=== PATIENT | female | born 1985 | race Two or more races ===

== ENCOUNTER 2019-09-21 08:53 | Emergency (ER) | payer MEDICAID, OTHER ==
[~2019-09-21] VITALS: Ht 154.9 cm; Wt 60.8 kg
[2019-09-21 09:04] VITALS: BP 106/71
== END 2019-09-21 10:14 | disposition home or self-care (01) ==
LOC: ER 08:59
DX: M43.6 Torticollis (principal); M62.830 Muscle spasm of back

== ENCOUNTER 2025-03-08 19:09 | Emergency (ER) | payer MEDICAID ==
[~2025-03-08] VITALS: Ht 157.5 cm; Wt 63.8 kg
--- NOTE | 2025-03-08 19:58 | ED.PDOC ---
Musculoskeletal HPI Comments HPI: Poor Historian. 39-year-old female presents to emergency department for evaluation of left ankle pain status post mechanical twist and fall on an uneven pavement. This happened approximately 1300 our today. Denies any other injuries or trauma. Patient ambulating in the ED. Past Medical History: Denies any Past Surgical History: Denies any REVIEW OF SYSTEMS: CONSTITUTIONAL: Denies acute: fever, diaphoresis, chills, generalized weakness. HEAD: Denies acute: headache, photophobia Eyes: Denies acute: Double vision, vision loss, eye pain, eye discharge. EARS: Denies acute: tinnitus, hearing loss, ear discharge, ear pain, THROAT: Denies acute: sore throat, swelling, difficulty swallowing , pain with swallowing, change in voice. NECK: Denies acute: neck pain, neck swelling, stiff neck. HEART: Denies acute : chest pain, palpitations, LUNGS: Denies acute: SOB, wheezing, cough, hemoptysis ABDOMEN: Denies acute: abdominal pain, Nausea, Vomiting, diarrhea, melena , hematemesis, hematochezia SKIN: Denies acute: rash, redness, lesions, itchiness. EXTREMITIES: Denies acute: calf pain, numbness, tingling, weakness, Denies acute: Low back pain. Neuro: Denies acute: focal neurological deficit, motor or sensory focal neurological deficit, tremors, seizure like activity, confusion, dizziness, change in mental status, loss of bowel or bladder function, cauda equina like symptoms. : Denies acute: dysuria, hematuria, flank pain, increase in urinary frequency. PSYCH: Denies acute: hallucination, suicidal ideation, homicidal ideation. FEMALE: Denies acute: abnormal vaginal bleeding, foul odor, unusual discharge. PHYSICAL EXAM: General: ----mild----acute distress, awake and alert. Head: normocephalic, atraumatic. Neck: supple, trachea is midline, no swelling. Throat: Normal phonation. Eyes:, no erythema, no purulent discharge, no proptosis, no icterus. Heart: regular rate, regular rhythm, no significant murmur appreciated. Lungs: no apparent respiratory distress, Able to speak in full sentences. No wheezing, no rhonchi, no crackles. No stridors Clear to auscultation bilaterally. Abdomen: non tender to palpation, non distended, soft, no guarding, no rebound, + bowel sounds. Neuro: Awake, Alert, oriented to name, self, situation, follows commands GCS=15. Speech is normal. Skin: no petechia, no purpura, no cyanosis, non-pale, not jaundice. Lower extremities: --no - Pitting edema no deformity, no focal swelling, no calf TTP. Evaluation of the left ankle area of complaint: No apparent swelling or erythema or deformity. The patient has focal tenderness to palpation over the left anterior lateral malleoli area. Pedal pulses palpable. Patient is neurovascularly intact in the affected extremity. Motor and sensory are present. Makes eye contact. moves all four extremities. Face: no apparent facial droop. Ambulating in the ED independently. Pedal pulses are palpable. ED COURSE: Chief Complaint: Lower Extremity Time Seen by MD: 19:52 Primary Care Provider: NONE Reviewed Notes: Nurses Notes, Medications, Allergies Allergies: Coded Allergies: NO KNOWN ALLERGIES (Unverified , 09/21/19) Information Source: Patient Location: Left Past Medical History PAST MEDICAL HISTORY: Denies Surgical History: Denies all surgeries MANAGER ENGAGEMENT History: Denies all MANAGER ENGAGEMENT Hx Family History Family History: Reviewed,noncontributory to illness Social History Smoker: Non-Smoker Lives In: Home Was a procedure done? Was a procedure done?: No Differential Diagnosis EXT Differential Diagnosis: Deep Vein Thrombosis, Compartment Syndrome, Fracture, Sprain, Dislocation, Gout, DJD, Contusion, Strain, Septic, Hernia, Neurovascular injury, Arthritis, Bursitis X-Ray, Labs, Meds, VS Vital Signs Date Time Temp Pulse Resp B/P (MAP) Pulse Ox O2 Delivery O2 Flow Rate FiO2 03/08/25 22:54 98.0 83 16 118/73 (88) 98 98.0 03/08/25 19:40 99.0 83 12 118/73 (88) 98 99.0 [facility] [id number] [facility] [id number] Ph: [phone] DIAGNOSTIC IMAGING Diagnostic Imaging Report : [id number] Signed PATIENT: MARLO TUTTLET: [id number] UNIT: [id number] : 1985 LOC: ER ROOM / BED: / AGE / SEX: 39 / F ADM STATUS: REG ER SERVICE 51 ORDERING PHYSICIAN: AYDIN DENNIS DO PROCEDURE(s): LANKL - L ANKLE 3 VIEW REASON: injury ORDER NUMBER(s): [id number], ACCESSION NUMBER(s): [id number] CLINICAL INDICATION: injury TECHNIQUE: XY L ANKLE 3 VIEW Comparison: None FINDINGS: No osseous or joint abnormality identified with no evidence of joint effusion, fracture or dislocation. Ankle mortise is normal. IMPRESSION: No abnormality demonstrated. ATED BY: GENARO MAHAN MD DICTATED DATE/TIME: 03/08/252042 SIGNED BY: GENARO MAHAN MD SIGNED DATE/TIME: 03/08/252042 CC: Time of 1ST Reevaluation: 00:00 Reevaluation 1ST: Unchanged Patient Education/Counseling: Diagnosis, Treatment Family Education/Counseling: Other Comments Patient presented with the above HPI.---ankle injury---workup was initiated. patient was found with the above mentioned diagnosis. the following medications were ordered: please refer to order lists of meds and tests obtained by myself Dr. Dennis. Patient ED course and VS have been stabilized. Patient has been reassessed in the ED and remained in a stable condition. Pertinent incidental findings were discussed with the patient and/or family. Patient/family voices understanding and is agreeable with plan. Patient has been observed in the ED adequate length of time to insure improvement/stability. Escalation of care considered: Consideration of escalation to observation or admission Patient was DISCHARGED home in a stable condition. All the reports of any imaging studies that were ordered by myself were reviewed by myself. Departure 1 Departure Time of Disposition: 20:43 Impression: Primary Impression: Left ankle sprain Disposition: 01 HOME / SELF CARE / HOMELESS Condition: Stable Additional Instructions: Additional instructions: You MUST follow-up with your primary care/family doctor in 1 to 2 days. If you are unable to see your primary care/family doctor, please return to our emergency room for re-assessment and re-evaluation in 1 to 2 days. Return to the emergency room here in our facility or to the nearest ER [facility] if your symptoms change or worsen. CONSULTATIONS: you MUST Follow-up for consultation as soon as possible with: -orthopedic doctor in 1-2 days. Please call for appointment. You MUST call the consultants office yourself to make an appointment. You may need to arrange that through your insurance and/or your primary/family doctor. If you are unable to see the contamination consultant in 1 to 2 days, you must return to our emergency room (or any other ER of your choice) for re-assessment and re- evaluation. Adequate fluid hydration. Leg elevation, ice, use [id number] Tylenol ibuprofen as needed for pain control. Below is a copy of your radiological report for follow up: [place] [address] Ph: [phone] DIAGNOSTIC IMAGING Diagnostic Imaging Report : [id number] Signed PATIENT: MABEL TTUTLE ACCT: [id number] UNIT: [id number] : 1985 LOC: ER ROOM / BED: / AGE / SEX: 39 / F ADM STATUS: REG ER SERVICE 51 ORDERING PHYSICIAN: AYDIN DENNIS DO PROCEDURE(s): LANKL - L ANKLE 3 VIEW REASON: injury ORDER NUMBER(s): [id number], ACCESSION NUMBER(s): [id number] CLINICAL INDICATION: injury TECHNIQUE: XY L ANKLE 3 VIEW Comparison: None FINDINGS: No osseous or joint abnormality identified with no evidence of joint effusion, fracture or dislocation. Ankle mortise is normal. IMPRESSION: No abnormality demonstrated. ATED BY: GENARO MAHAN MD DICTATED DATE/TIME: 03/08/252042 SIGNED BY: GENARO MAHAN MD SIGNED DATE/TIME: 03/08/252042 CC: Discharged With: Self Critical Care Note Critical Care Time?: No AYDIN DENNIS DO March 08, 2025 19:58
--- NOTE | 2025-03-08 20:46 | DVH ---
CLINICAL INDICATION: injury TECHNIQUE: XY L ANKLE 3 VIEW Comparison: None FINDINGS: No osseous or joint abnormality identified with no evidence of joint effusion, fracture or dislocatio n. Ankle mortise is normal. IMPRESSION: No abnormality demonstrated.
[2025-03-08 22:54] VITALS: BP 118/73; PULSE 83; RESP 16; TEMP 98; O2SAT 98
== END 2025-03-08 22:55 | disposition home or self-care (01) ==
LOC: ER 19:09
DX: S93.402A Sprain of unspecified ligament of left ankle, initial encounter (principal); W18.39XA Other fall on same level, initial encounter; Y93.89 Activity, other specified; Y92.480 Sidewalk as the place of occurrence of the external cause; Y99.0 Civilian activity done for income or pay
CPT/HCPCS: 73610